=== PATIENT | male | born 1975 | race Caucasian/White ===

== ENCOUNTER 2020-03-09 09:05 | Outpatient (REF) | payer OTHER, SELFPAY ==
[2020-03-09 10:08] LABS: Hematocrit 47.3 % (42-52); Hemoglobin 15.1 g/dl (14.0-18.0); Mean Corpuscular HGB Conc 31.9 g/dl (31.0-36.0); Mean Corpuscular Hemoglobin 28.1 pg (27.0-33.0); Mean Corpuscular Volume 88.1 fL (80-98); Mean Platelet Volume 10.3 fL (9.4-12.4); Platelet Count 211 X10*3/uL (160-400); Red Blood Count 5.37 X10*6/uL (4.60-5.80); White Blood Count 5.2 X10*3/uL (4.8-10.8)
[2020-03-09 10:52] LABS: Alanine Aminotransferase 70 U/L (0-40); Alkaline Phosphatase 41 U/L (39-117); Anion Gap 11 (12-20); Aspartate Amino Transferase 61 U/L (5-37); Bilirubin Total 0.4 mg/dL (0.0-1.0); Blood Urea Nitrogen 23 mg/dL (9-16); Calcium 8.5 mg/dL (8.4-10.2); Carbon Dioxide 33 mmol/L (22-29); Chloride 98 mmol/L (96-108); Estimated Glomerular Filt Rate 58; Glucose Fasting 79 mg/dL (60-99); Potassium 4.3 mmol/l (3.3-5.1); Sodium 138 mmol/L (135-145); Total Protein 6.6 g/dL (6.5-8.0)
[2020-03-09 11:15] LABS: Prostate Specific Antigen Scr 1.07 ng/mL (<0.05-4.0)
[2020-03-10 11:42] LABS: DHEA Sulfate 559 mcg/dL (70-495)
[2020-03-11 01:32] LABS: Follicle Stimulating Hormone <0.7 mIU/mL (1.6-8.0); Lutenizing Hormone <0.2 mIU/mL (1.5-9.3)
[2020-03-12 12:17] LABS: Insulin Level Total 2.1 uIU/mL
[2020-03-15 23:41] LABS: Dihydrotestosterone 58 ng/dL (12-65)
[2020-03-17 00:51] LABS: Estradiol Free 2.77 pg/mL; Estradiol, Ultrasensitive 100 pg/mL
[2020-03-19 19:09] LABS: Testosterone, Free 382.8 pg/mL (35.0-155.0); Testosterone, Total 1302 ng/dL (250-1100)
== END 2020-03-09 09:06 | disposition home or self-care (01) ==
LOC: HO.LAB 09:05
PROVIDERS: Visit Provider Internal Medicine
DX: Z00.00 Encounter for general adult medical examination without abnormal findings (principal); E78.5 Hyperlipidemia, unspecified; E29.1 Testicular hypofunction; E03.9 Hypothyroidism, unspecified; E55.9 Vitamin D deficiency, unspecified; K76.0 Fatty (change of) liver, not elsewhere classified; I51.9 Heart disease, unspecified; D64.9 Anemia, unspecified; R53.83 Other fatigue; Z12.5 Encounter for screening for malignant neoplasm of prostate
CPT/HCPCS: 36415; 80053; 82627; 82642; 82670; 83001; 83002; 83525; 84153; 84402; 84403; 85027

== ENCOUNTER 2020-07-09 09:21 | Outpatient (REF) | payer OTHER, SELFPAY ==
[2020-07-09 10:11] LABS: Hematocrit 44.9 % (42-52); Hemoglobin 13.9 g/dl (14.0-18.0); Mean Corpuscular Hemoglobin 26.1 pg (27.0-33.0); Mean Corpuscular Volume 84.2 fL (80-98); Mean Platelet Volume 10.2 fL (9.4-12.4); Platelet Count 227 X10*3/uL (160-400); Red Blood Count 5.33 X10*6/uL (4.60-5.80); Red Cell Distribution Width 15.5 % (11.0-16.0); White Blood Count 4.8 X10*3/uL (4.8-10.8)
[2020-07-09 10:35] LABS: Alanine Aminotransferase 55 U/L (0-40); Albumin Level 4.1 g/dL (3.5-5.0); Alkaline Phosphatase 53 U/L (39-117); Anion Gap 10 (12-20); Aspartate Amino Transferase 45 U/L (5-37); Bilirubin Total 0.3 mg/dL (0.0-1.0); Blood Urea Nitrogen 21 mg/dL (9-16); Carbon Dioxide 34 mmol/L (22-29); Chloride 100 mmol/L (96-108); Estimated Glomerular Filt Rate 55; Glucose Random 91 mg/dL (60-115); Potassium 4.4 mmol/L (3.3-5.1); Sodium 140 mmol/L (135-145); Total Protein 6.8 g/dL (6.5-8.0)
[2020-07-10 11:57] LABS: DHEA Sulfate 58 mcg/dL (70-495); Insulin Level Total 3.1 uIU/mL
[2020-07-15 11:21] LABS: Dihydrotestosterone 61 ng/dL (12-65); Testosterone, Free 498.2 pg/mL (35.0-155.0); Testosterone, Total 1706 ng/dL (250-1100)
[2020-07-19 01:41] LABS: Estradiol Free 0.43 pg/mL; Estradiol, Ultrasensitive 14 pg/mL
== END 2020-07-09 09:22 | disposition home or self-care (01) ==
LOC: HO.LAB 09:21
PROVIDERS: Visit Provider Internal Medicine
DX: E29.1 Testicular hypofunction (principal); D64.9 Anemia, unspecified; K76.0 Fatty (change of) liver, not elsewhere classified; R53.83 Other fatigue
CPT/HCPCS: 36415; 80053; 82627; 82642; 82670; 82681; 83525; 84402; 84403; 85027

== ENCOUNTER 2020-08-31 08:11 | Outpatient (REF) | payer OTHER, SELFPAY ==
[2020-08-31 09:00] LABS: Hematocrit 44.1 % (42-52); Hemoglobin 13.2 g/dl (14.0-18.0); Mean Corpuscular HGB Conc 29.9 g/dl (31.0-36.0); Mean Corpuscular Hemoglobin 25.4 pg (27.0-33.0); Mean Corpuscular Volume 84.8 fL (80-98); Mean Platelet Volume 10.7 fL (9.4-12.4); Platelet Count 233 X10*3/uL (160-400); Red Cell Distribution Width 14.8 % (11.0-16.0); White Blood Count 5.9 X10*3/uL (4.8-10.8)
[2020-08-31 09:21] LABS: Alanine Aminotransferase 52 U/L (0-40); Albumin Level 4.1 g/dL (3.5-5.0); Alkaline Phosphatase 46 U/L (39-117); Anion Gap 13 (12-20); Aspartate Amino Transferase 46 U/L (5-37); Bilirubin Total 0.4 mg/dL (0.0-1.0); Blood Urea Nitrogen 20 mg/dL (9-16); Calcium 9.1 mg/dL (8.4-10.2); Carbon Dioxide 31 mmol/L (22-29); Chloride 101 mmol/L (96-108); Cholesterol 168 mg/dL; Estimated Glomerular Filt Rate 56; Glucose Random 89 mg/dL (60-115); HDL Cholesterol 45 mg/dL; LDL Cholesterol Calculated 96 mg/dl; Potassium 4.5 mmol/L (3.3-5.1); Sodium 140 mmol/L (135-145); Total Protein 6.7 g/dL (6.5-8.0); Triglycerides 137 mg/dL
[2020-08-31 09:43] LABS: Prostate Specific Antigen 1.51 ng/mL (<0.05-4.0)
[2020-09-01 05:36] LABS: Insulin Level Total 2.2 uIU/mL
[2020-09-01 06:01] LABS: Follicle Stimulating Hormone <0.7 mIU/mL (1.6-8.0); Lutenizing Hormone <0.2 mIU/mL (1.5-9.3)
[2020-09-05 21:11] LABS: Dihydrotestosterone 55 ng/dL (12-65)
[2020-09-06 19:21] LABS: Estradiol Free 2.48 pg/mL; Estradiol, Ultrasensitive 84 pg/mL
[2020-09-12 13:57] LABS: Testosterone, Free 266.8 pg/mL (35.0-155.0); Testosterone, Total 1121 ng/dL (250-1100)
== END 2020-08-31 08:12 | disposition home or self-care (01) ==
LOC: HO.LAB 08:11
PROVIDERS: Visit Provider Internal Medicine
DX: E29.1 Testicular hypofunction (principal); D64.9 Anemia, unspecified; E78.5 Hyperlipidemia, unspecified; R53.83 Other fatigue
CPT/HCPCS: 36415; 80053; 80061; 82642; 82670; 82681; 83001; 83002; 83525; 84153; 84402; 84403; 85027

== ENCOUNTER 2020-11-30 09:36 | Outpatient (REF) | payer OTHER, SELFPAY ==
[2020-11-30 10:48] LABS: Hematocrit 45.4 % (42-52); Hemoglobin 13.6 g/dl (14.0-18.0); Mean Corpuscular Hemoglobin 24.1 pg (27.0-33.0); Mean Corpuscular Volume 80.5 fL (80-98); Mean Platelet Volume 10.2 fL (9.4-12.4); Platelet Count 225 X10*3/uL (160-400); Red Blood Count 5.64 X10*6/uL (4.60-5.80); Red Cell Distribution Width 18.6 % (11.0-16.0); White Blood Count 5.7 X10*3/uL (4.8-10.8)
[2020-11-30 11:13] LABS: Alanine Aminotransferase 64 U/L (0-40); Albumin Level 4.2 g/dL (3.5-5.0); Alkaline Phosphatase 43 U/L (39-117); Anion Gap 12 (12-20); Aspartate Amino Transferase 58 U/L (5-37); Bilirubin Total 0.6 mg/dL (0.0-1.0); Blood Urea Nitrogen 19 mg/dL (9-16); Calcium 9.5 mg/dL (8.4-10.2); Carbon Dioxide 31 mmol/L (22-29); Chloride 100 mmol/L (96-108); Cholesterol 158 mg/dL; Estimated Glomerular Filt Rate 57; Glucose Random 83 mg/dL (60-115); HDL Cholesterol 44 mg/dL; Iron 45 mcg/dL (45-160); LDL Cholesterol Calculated 95 mg/dl; Percent Iron Saturation 11 % (15-50); Potassium 5.1 mmol/L (3.3-5.1); Sodium 138 mmol/L (135-145); Total Iron Binding Capacity 396 mcg/dL (228-428); Total Protein 6.7 g/dL (6.5-8.0); Triglycerides 95 mg/dL; Unsaturated Iron Binding 351 ug/dL
[2020-11-30 11:36] LABS: Ferritin 11 ng/mL (20-250); Free T4 (Free Thyroxine) 0.92 ng/dL (0.71-1.85); Prostate Specific Antigen Scr 1.71 ng/mL (<0.05-4.0); Thyroid Stimulating Hormone 2.47 uIU/mL (0.32-4.0)
[2020-12-03 18:17] LABS: Follicle Stimulating Hormone <0.7 mIU/mL (1.6-8.0); Lutenizing Hormone <0.2 mIU/mL (1.5-9.3)
[2020-12-03 21:41] LABS: DHEA Sulfate 93 mcg/dL (70-495)
[2020-12-05 14:42] LABS: Testosterone, Free 380.6 pg/mL (35.0-155.0); Testosterone, Total 1345 ng/dL (250-1100)
[2020-12-05 21:36] LABS: Dihydrotestosterone 50 ng/dL (12-65)
[2020-12-07 02:06] LABS: Estradiol Free 2.45 pg/mL; Estradiol, Ultrasensitive 88 pg/mL
== END 2020-11-30 09:37 | disposition home or self-care (01) ==
LOC: HO.LAB 09:36
PROVIDERS: Visit Provider Internal Medicine
DX: Z12.5 Encounter for screening for malignant neoplasm of prostate (principal); E29.1 Testicular hypofunction; D64.9 Anemia, unspecified; R53.83 Other fatigue; R97.20 Elevated prostate specific antigen [PSA]
CPT/HCPCS: 36415; 80053; 80061; 82627; 82642; 82670; 82681; 82728; 83001; 83002; 83540; 83735; 84153; 84402; 84403; 84439; 84443; 85027

== ENCOUNTER 2021-01-18 08:41 | Outpatient (REF) | payer OTHER, SELFPAY ==
[2021-01-18 09:09] LABS: MANUAL DIFF FLAG NO
[2021-01-18 09:45] LABS: Basophils Percent Auto 0.6 % (0-2); Eosinophils Absolute Auto 0.1 X10*3/uL (0.0-0.4); Eosinophils Percent Auto 2.3 % (0-4); Hematocrit 47.7 % (42-52); Hemoglobin 14.2 g/dl (14.0-18.0); Lymphocytes Absolute Auto 1.5 X10*3/uL (1.2-4.9); Lymphocytes Percent Auto 29.3 % (20-40); Mean Corpuscular HGB Conc 29.8 g/dl (31.0-36.0); Mean Corpuscular Hemoglobin 24.6 pg (27.0-33.0); Mean Corpuscular Volume 82.7 fL (80-98); Mean Platelet Volume 10.4 fL (9.4-12.4); Monocytes Absolute Auto 0.5 X10*3/uL (0.1-1.2); Monocytes Percent Auto 10.3 % (2-11); Neutrophils Percent Auto 57.5 % (45-73); Platelet Count 242 X10*3/uL (160-400); Red Blood Count 5.77 X10*6/uL (4.60-5.80); Red Cell Distribution Width 16.9 % (11.0-16.0); White Blood Count 5.3 X10*3/uL (4.8-10.8)
[2021-01-18 09:46] LABS: Alanine Aminotransferase 51 U/L (0-40); Albumin Level 4.3 g/dL (3.5-5.0); Alkaline Phosphatase 40 U/L (39-117); Anion Gap 12 (12-20); Aspartate Amino Transferase 47 U/L (5-37); Bilirubin Total 0.7 mg/dL (0.0-1.0); Blood Urea Nitrogen 19 mg/dL (9-16); Calcium 9.4 mg/dL (8.4-10.2); Carbon Dioxide 31 mmol/L (22-29); Chloride 100 mmol/L (96-108); Estimated Glomerular Filt Rate 51; Glucose Random 92 mg/dL (60-115); Iron 89 mcg/dL (45-160); Percent Iron Saturation 21 % (15-50); Potassium 4.7 mmol/L (3.3-5.1); Sodium 138 mmol/L (135-145); Total Iron Binding Capacity 423 mcg/dL (228-428); Total Protein 6.9 g/dL (6.5-8.0); Unsaturated Iron Binding 334 ug/dL
[2021-01-18 10:00] LABS: Ferritin 7 ng/mL (20-250)
[2021-01-19 11:36] LABS: CRP High Sensitivity 0.7 mg/L
[2021-01-19 19:52] LABS: Follicle Stimulating Hormone <0.7 mIU/mL (1.6-8.0); Lutenizing Hormone <0.2 mIU/mL (1.5-9.3)
[2021-01-24 13:51] LABS: Testosterone, Free 452.4 pg/mL (35.0-155.0); Testosterone, Total 1645 ng/dL (250-1100)
[2021-01-24 20:06] LABS: Dihydrotestosterone 63 ng/dL (12-65)
[2021-01-24 21:17] LABS: Estradiol Free 0.76 pg/mL; Estradiol, Ultrasensitive 27 pg/mL
== END 2021-01-18 08:42 | disposition home or self-care (01) ==
LOC: HO.LAB 08:41
PROVIDERS: Visit Provider Internal Medicine
DX: E29.1 Testicular hypofunction (principal); E55.9 Vitamin D deficiency, unspecified; D64.9 Anemia, unspecified; K76.0 Fatty (change of) liver, not elsewhere classified; R53.83 Other fatigue
CPT/HCPCS: 36415; 80053; 82306; 82642; 82670; 82681; 82728; 83001; 83002; 83540; 84402; 84403; 85025; 86141

== ENCOUNTER 2021-07-15 08:33 | Outpatient (REF) | payer OTHER, SELFPAY ==
[2021-07-15 09:05] LABS: MANUAL DIFF FLAG NO
[2021-07-15 09:16] LABS: Basophils Percent Auto 0.6 % (0-2); Eosinophils Absolute Auto 0.1 X10*3/uL (0.0-0.4); Eosinophils Percent Auto 2.7 % (0-4); Hematocrit 44.7 % (42.0-52.0); Hemoglobin 12.9 g/dl (14.0-18.0); Imm Gran Abs Auto 0.01 X10*3/uL (0.00-0.03); Imm Gran Pct Auto 0.2 % (0.0-0.4); Lymphocytes Absolute Auto 1.5 X10*3/uL (1.2-4.9); Lymphocytes Percent Auto 29.5 % (20-40); Mean Corpuscular HGB Conc 28.9 g/dl (31.0-36.0); Mean Corpuscular Hemoglobin 24.1 pg (27.0-33.0); Mean Corpuscular Volume 83.6 fL (80.0-98.0); Mean Platelet Volume 9.8 fL (9.4-12.4); Monocytes Absolute Auto 0.5 X10*3/uL (0.1-1.2); Monocytes Percent Auto 9.1 % (2-11); Neutrophils Percent Auto 57.9 % (45-73); Platelet Count 207 X10*3/uL (160-400); Red Blood Count 5.35 X10*6/uL (4.60-5.80); Red Cell Distribution Width 16.7 % (11.0-16.0); White Blood Count 5.2 X10*3/uL (4.8-10.8)
[2021-07-15 09:49] LABS: Alanine Aminotransferase 32 U/L (0-40); Albumin Level 3.8 g/dL (3.5-5.0); Alkaline Phosphatase 48 U/L (39-117); Anion Gap 9 (12-20); Aspartate Amino Transferase 30 U/L (5-37); Bilirubin Total 0.3 mg/dL (0.0-1.0); Blood Urea Nitrogen 22 mg/dL (9-16); C Reactive Protein 0.17 mg/dL (< or = 0.50); Calcium 9.2 mg/dL (8.4-10.2); Carbon Dioxide 32 mmol/L (22-29); Chloride 105 mmol/L (96-108); Estimated Glomerular Filt Rate 57; Glucose Random 87 mg/dL (60-115); Iron 21 mcg/dL (45-160); Potassium 4.3 mmol/L (3.3-5.1); Sodium 142 mmol/L (135-145); Total Protein 6.3 g/dL (6.5-8.0)
[2021-07-15 10:00] LABS: Percent Iron Saturation 6 % (15-50); Total Iron Binding Capacity 372 mcg/dL (228-428); Unsaturated Iron Binding 351 ug/dL
[2021-07-15 10:07] LABS: Ferritin 21 ng/mL (20-250); Vitamin D 25-OH Total 40.7 ng/mL (>30)
[2021-07-17 00:11] LABS: Follicle Stimulating Hormone <0.7 mIU/mL (1.6-8.0); Lutenizing Hormone <0.2 mIU/mL (1.5-9.3)
[2021-07-19 23:17] LABS: Dihydrotestosterone 32 ng/dL (12-65)
[2021-07-20 04:01] LABS: Estradiol Free 2.07 pg/mL; Estradiol, Ultrasensitive 71 pg/mL (< OR = 29)
[2021-07-20 19:57] LABS: Testosterone, Free 226.3 pg/mL (35.0-155.0); Testosterone, Total 747 ng/dL (250-1100)
== END 2021-07-15 08:34 | disposition home or self-care (01) ==
LOC: HO.LAB 08:33
PROVIDERS: Visit Provider Internal Medicine
DX: E78.5 Hyperlipidemia, unspecified (principal); K76.0 Fatty (change of) liver, not elsewhere classified; R53.83 Other fatigue; E55.9 Vitamin D deficiency, unspecified; D64.9 Anemia, unspecified; E29.1 Testicular hypofunction
CPT/HCPCS: 36415; 80053; 82306; 82642; 82670; 82681; 82728; 83001; 83002; 83540; 84402; 84403; 85025; 86140

== ENCOUNTER 2021-09-27 11:47 | Outpatient (REF) | payer OTHER, SELFPAY ==
[2021-09-27 13:39] LABS: Prostate Specific Antigen 1.58 ng/mL (<0.05-4.0)
== END 2021-09-27 11:48 | disposition home or self-care (01) ==
LOC: HO.LAB 11:47
PROVIDERS: Visit Provider Urology
DX: N40.1 Benign prostatic hyperplasia with lower urinary tract symptoms (principal); Z12.5 Encounter for screening for malignant neoplasm of prostate
CPT/HCPCS: 36415; 84153

== ENCOUNTER 2022-01-17 07:43 | Outpatient (REF) | payer OTHER, SELFPAY ==
[2022-01-17 08:05] LABS: MANUAL DIFF FLAG NO
[2022-01-17 08:21] LABS: Basophils Percent Auto 0.6 % (0-2); Eosinophils Absolute Auto 0.2 X10*3/uL (0.0-0.4); Eosinophils Percent Auto 3.2 % (0-4); Hemoglobin 12.7 g/dl (14.0-18.0); Imm Gran Abs Auto 0.01 X10*3/uL (0.00-0.03); Imm Gran Pct Auto 0.2 % (0.0-0.4); Lymphocytes Absolute Auto 1.6 X10*3/uL (1.2-4.9); Lymphocytes Percent Auto 30.7 % (20-40); Mean Corpuscular HGB Conc 29.5 g/dl (31.0-36.0); Mean Corpuscular Hemoglobin 23.5 pg (27.0-33.0); Mean Corpuscular Volume 79.6 fL (80.0-98.0); Mean Platelet Volume 10.4 fL (9.4-12.4); Monocytes Absolute Auto 0.4 X10*3/uL (0.1-1.2); Monocytes Percent Auto 7.8 % (2-11); Neutrophils Percent Auto 57.5 % (45-73); Platelet Count 199 X10*3/uL (160-400); Red Cell Distribution Width 17.7 % (11.0-16.0); White Blood Count 5.2 X10*3/uL (4.8-10.8)
[2022-01-17 08:46] LABS: Alanine Aminotransferase 47 U/L (0-40); Alkaline Phosphatase 48 U/L (39-117); Anion Gap 12 (12-20); Aspartate Amino Transferase 41 U/L (5-37); Bilirubin Total < 0.2 mg/dL (0.0-1.0); Blood Urea Nitrogen 23 mg/dL (9-16); Carbon Dioxide 30 mmol/L (22-29); Chloride 104 mmol/L (96-108); Estimated Glomerular Filt Rate 55; Glucose Random 96 mg/dL (60-115); Iron 18 mcg/dL (45-160); Percent Iron Saturation 4 % (15-50); Potassium 4.4 mmol/L (3.3-5.1); Sodium 142 mmol/L (135-145); Total Iron Binding Capacity 420 mcg/dL (228-428); Total Protein 6.6 g/dL (6.5-8.0); Unsaturated Iron Binding 402 ug/dL
[2022-01-17 09:10] LABS: Ferritin 6 ng/mL (20-250); Vitamin D 25-OH Total 35.9 ng/mL (>30)
[2022-01-19 18:46] LABS: Follicle Stimulating Hormone <0.7 mIU/mL (1.6-8.0); Lutenizing Hormone <0.2 mIU/mL (1.5-9.3)
[2022-01-21 02:57] LABS: CRP High Sensitivity 3.4 mg/L
[2022-01-23 14:03] LABS: Testosterone, Free 226.5 pg/mL (35.0-155.0); Testosterone, Total 998 ng/dL (250-1100)
[2022-01-24 03:06] LABS: Dihydrotestosterone 62 ng/dL (12-65)
[2022-01-26 04:37] LABS: Estradiol Free 2.64 pg/mL; Estradiol, Ultrasensitive 100 pg/mL (< OR = 29)
== END 2022-01-17 07:44 | disposition home or self-care (01) ==
LOC: HO.LAB 07:43
PROVIDERS: Visit Provider Internal Medicine
DX: E29.1 Testicular hypofunction (principal); E55.9 Vitamin D deficiency, unspecified; R53.83 Other fatigue; K76.0 Fatty (change of) liver, not elsewhere classified; D64.9 Anemia, unspecified
CPT/HCPCS: 36415; 80053; 82306; 82642; 82670; 82681; 82728; 83001; 83002; 83540; 84402; 84403; 85025; 86141

== ENCOUNTER 2022-07-07 07:43 | Outpatient (REF) | payer OTHER, SELFPAY ==
[2022-07-07 07:59] LABS: MANUAL DIFF FLAG NO
[2022-07-07 08:26] LABS: Basophils Percent Auto 0.6 % (0-2); Eosinophils Absolute Auto 0.1 X10*3/uL (0.0-0.4); Eosinophils Percent Auto 0.9 % (0-4); Hematocrit 48.2 % (42.0-52.0); Imm Gran Abs Auto 0.02 X10*3/uL (0.00-0.03); Imm Gran Pct Auto 0.3 % (0.0-0.4); Lymphocytes Absolute Auto 1.2 X10*3/uL (1.2-4.9); Lymphocytes Percent Auto 19.5 % (20-40); Mean Corpuscular HGB Conc 31.1 g/dl (31.0-36.0); Mean Corpuscular Hemoglobin 26.5 pg (27.0-33.0); Mean Corpuscular Volume 85.2 fL (80.0-98.0); Monocytes Absolute Auto 0.5 X10*3/uL (0.1-1.2); Monocytes Percent Auto 8.3 % (2-11); Neutrophils Absolute Auto 4.5 x10*3/uL (2.0-8.3); Neutrophils Percent Auto 70.4 % (45-73); Platelet Count 226 X10*3/uL (160-400); Red Blood Count 5.66 X10*6/uL (4.60-5.80); Red Cell Distribution Width 16.8 % (11.0-16.0); White Blood Count 6.4 X10*3/uL (4.8-10.8)
[2022-07-07 09:22] LABS: Prostate Specific Antigen Scr 2.01 ng/mL (<0.05-4.0)
[2022-07-14 03:10] LABS: Dihydrotestosterone 40 ng/dL (12-65)
[2022-07-15 13:53] LABS: Testosterone, Free 211.5 pg/mL (35.0-155.0); Testosterone, Total 698 ng/dL (250-1100)
[2022-07-17 20:23] LABS: Estradiol Free 1.64 pg/mL; Estradiol, Ultrasensitive 59 pg/mL (< OR = 29)
== END 2022-07-07 07:44 | disposition home or self-care (01) ==
LOC: HO.LAB 07:43
PROVIDERS: Physician Assistant; Visit Provider Internal Medicine
DX: Z12.5 Encounter for screening for malignant neoplasm of prostate (principal); E29.1 Testicular hypofunction; D64.9 Anemia, unspecified; R53.83 Other fatigue
CPT/HCPCS: 36415; 82642; 82670; 82681; 84153; 84402; 84403; 85025

== ENCOUNTER 2023-01-16 08:17 | Outpatient (REF) | payer OTHER, SELFPAY ==
[2023-01-16 08:39] LABS: MANUAL DIFF FLAG NO
[2023-01-16 09:24] LABS: Basophils Percent Auto 0.5 % (0-2); Eosinophils Absolute Auto 0.2 X10*3/uL (0.0-0.4); Eosinophils Percent Auto 2.1 % (0-4); Hematocrit 46.3 % (42.0-52.0); Hemoglobin 14.6 g/dl (14.0-18.0); Imm Gran Abs Auto 0.02 X10*3/uL (0.00-0.03); Imm Gran Pct Auto 0.3 % (0.0-0.4); Lymphocytes Absolute Auto 1.3 X10*3/uL (1.2-4.9); Lymphocytes Percent Auto 17.3 % (20-40); Mean Corpuscular HGB Conc 31.5 g/dl (31.0-36.0); Mean Corpuscular Hemoglobin 27.3 pg (27.0-33.0); Mean Corpuscular Volume 86.5 fL (80.0-98.0); Mean Platelet Volume 10.5 fL (9.4-12.4); Monocytes Absolute Auto 0.6 X10*3/uL (0.1-1.2); Monocytes Percent Auto 7.2 % (2-11); Neutrophils Absolute Auto 5.6 x10*3/uL (2.0-8.3); Neutrophils Percent Auto 72.6 % (45-73); Platelet Count 193 X10*3/uL (160-400); Red Blood Count 5.35 X10*6/uL (4.60-5.80); Red Cell Distribution Width 15.1 % (11.0-16.0); White Blood Count 7.7 X10*3/uL (4.8-10.8)
[2023-01-16 10:17] LABS: Prostate Specific Antigen Scr 2.17 ng/mL (<0.05-4.0)
[2023-01-23 03:49] LABS: Dihydrotestosterone 49 ng/dL (12-65)
[2023-01-25 01:43] LABS: Estradiol Free 1.01 pg/mL; Estradiol, Ultrasensitive 40 pg/mL (< OR = 29)
== END 2023-01-16 08:18 | disposition home or self-care (01) ==
LOC: HO.LAB 08:17
PROVIDERS: Visit Provider Internal Medicine
DX: Z12.5 Encounter for screening for malignant neoplasm of prostate (principal); E29.1 Testicular hypofunction; D64.9 Anemia, unspecified; R53.83 Other fatigue; R97.20 Elevated prostate specific antigen [PSA]
CPT/HCPCS: 36415; 82642; 82670; 82681; 84153; 84402; 84403; 85025

== ENCOUNTER 2024-04-04 13:37 | Emergency (ER) | payer OTHER, SELFPAY ==
--- NOTE | ~2024-04-04 | XR_ITS ---
EXAMINATION: XR CHEST CLINICAL INFORMATION: CP COMPARISON: Chest x-ray on 04/17/2010 TECHNIQUE: 2 views of the chest were obtained. FINDINGS: No significant abnormality is noted involving the heart, lungs, mediastinum, bony thorax or soft tissues. XR/XR chest 2V IMPRESSION: Unremarkable examination. Electronically signed by: Laila Le MD 04/04/2024 02:58 PM [facility] [place]
--- NOTE | 2024-04-04 13:39 | ECG_ITS ---
Test Reason : CHEST PAIN Blood Pressure : / mmHG Vent. Rate : 105 BPM Atrial Rate : 105 BPM P-R Int : 172 ms QRS Dur : 094 ms QT Int : 310 ms P-R-T Axes : 032 016 003 degrees QTc Int : 409 ms Sinus tachycardia Otherwise normal ECG No previous ECGs available Referred By: Generic ED Physician Electronically Signed By:Sascha Rucker
[2024-04-04 13:57] LABS: MANUAL DIFF FLAG NO
[2024-04-04 13:58] LABS: Basophils Absolute Auto 0.1 X10*3/uL (0.0-0.2); Basophils Percent Auto 0.7 % (0-2); Eosinophils Absolute Auto 0.4 X10*3/uL (0.0-0.4); Eosinophils Percent Auto 5.1 % (0-4); Hematocrit 49.8 % (42.0-52.0); Hemoglobin 16.1 g/dl (14.0-18.0); Imm Gran Abs Auto 0.02 X10*3/uL (0.00-0.03); Imm Gran Pct Auto 0.3 % (0.0-0.4); Lymphocytes Absolute Auto 2.9 X10*3/uL (1.2-4.9); Lymphocytes Percent Auto 37.4 % (20-40); Mean Corpuscular HGB Conc 32.3 g/dl (31.0-36.0); Mean Corpuscular Hemoglobin 27.9 pg (27.0-33.0); Mean Corpuscular Volume 86.3 fL (80.0-98.0); Mean Platelet Volume 9.7 fL (9.4-12.4); Monocytes Absolute Auto 0.6 X10*3/uL (0.1-1.2); Monocytes Percent Auto 7.9 % (2-11); Neutrophils Absolute Auto 3.7 x10*3/uL (2.0-8.3); Neutrophils Percent Auto 48.6 % (45-73); Platelet Count 216 X10*3/uL (160-400); Red Blood Count 5.77 X10*6/uL (4.60-5.80); White Blood Count 7.7 X10*3/uL (4.8-10.8)
[2024-04-04 14:13] LABS: Anion Gap 14 (12-20); Blood Urea Nitrogen 25 mg/dL (9-16); Calcium 9.4 mg/dL (8.4-10.2); Carbon Dioxide 30 mmol/L (22-29); Chloride 103 mmol/L (96-108); Estimated Glomerular Filt Rate 54; Glucose Random 149 mg/dL (60-115); Potassium 3.7 mmol/L (3.3-5.1); Sodium 143 mmol/L (135-145)
[2024-04-04 14:14] VITALS: BP 121/71; PULSE 94; RESP 18; TEMP 36.1; O2SAT 99; BMI 26.3
[2024-04-04 14:22] LABS: Troponin-I High Sensitivity 4.5 ng/L (<3.5-35.0)
[2024-04-04 15:00] LABS: Free T4 (Free Thyroxine) 1.08 ng/dL (0.71-1.85); Thyroid Stimulating Hormone 3.33 uIU/mL (0.32-4.0)
--- NOTE | 2024-04-04 16:43 | ED.GENADULT ---
HPI - General Adult General Chief complaint: Arrhythmia/Palpitations Stated complaint: chest pain Source: patient Mode of arrival: ambulatory Limitations: no limitations History of Present Illness ED Provider: Gabriel Barros PA-C HPI narrative: patient left before completion of treatment by ED provider. Related Data Allergies Allergy/AdvReac Type Severity Reaction Status Date / Time No Known Allergies Allergy Verified 04/04/24 14:15 PMFSH Social History Social History Advance Directives: No Advance Directives Information Provided: No Physical Exam ED Vital Signs: Vital Signs - 24 hr 04/04/24 14:14 Temperature 97 F Pulse Rate 94 Respiratory Rate 18 Blood Pressure 121/71 Pulse Oximetry 99 Oxygen Delivery Method Room Air BMI result Body Mass Index 26.3 Course Course Course Narrative: RME: 13 male presents to ED for palpitations, chills, metallic taste and sensation that he was about to pass out. Patient states this lasted for only couple of minutes and resolved on its own. Patient denies ever losing consciousness. Patient denies any headache, slurred speech, facial droop, paralysis of extremities, nausea, or vomiting. Patient denies any recent long travel or recent surgery. Neuro exam intact. Lungs are clear. Vital signs stable. EKG labs ordered Medical Decision Making Lab Data 04/04/24 13:52 04/04/24 13:52 Labs: Lab Results 04/04/24 Range/Units 13:52 WBC 7.7 (4.8-10.8) X10*3/uL RBC 5.77 (4.60-5.80) X10*6/uL Hgb 16.1 (14.0-18.0) g/dl Hct 49.8 (42.0-52.0) % MCV 86.3 (80.0-98.0) fL MCH 27.9 (27.0-33.0) pg MCHC 32.3 (31.0-36.0) g/dl RDW 15.0 (11.0-16.0) % Plt Count 216 (160-400) X10*3/uL MPV 9.7 (9.4-12.4) fL Immature Gran % (Auto) 0.3 (0.0-0.4) % Neut % (Auto) 48.6 (45-73) % Lymph % (Auto) 37.4 (20-40) % Foster % (Auto) 7.9 (2-11) % Eos % (Auto) 5.1 H (0-4) % Baso % (Auto) 0.7 (0-2) % Lymph # (Auto) 2.9 (1.2-4.9) X10*3/uL Foster # (Auto) 0.6 (0.1-1.2) X10*3/uL Eos # (Auto) 0.4 (0.0-0.4) X10*3/uL Baso # (Auto) 0.1 (0.0-0.2) X10*3/uL Abs Immat Gran (auto) 0.02 (0.00-0.03) X10*3/uL Absolute Neuts (auto) 3.7 (2.0-8.3) x10*3/uL Absolute Nucleated RBC 0.000 (0.0-0.012) X10*3/uL Nucleated RBC % (auto) 0.0 (0.0-0.2) /100WBC Sodium 143 (135-145) mmol/L Potassium 3.7 (3.3-5.1) mmol/L Chloride 103 (96-108) mmol/L Carbon Dioxide 30 H (22-29) mmol/L Anion Gap 14 (12-20) BUN 25 H (9-16) mg/dL Creatinine 1.40 (0.5-1.4) mg/dL Estim Creat Clear Calc TNP Estimated GFR 54 Random Glucose 149 H (60-115) mg/dL Calcium 9.4 (8.4-10.2) mg/dL Troponin I High Sens 4.5 (<3.5-35.0) ng/L TSH 3.33 (0.32-4.0) uIU/mL Free T4 1.08 (0.71-1.85) ng/dL Discharge Plan Discharge Clinical Impression: Palpitations Patient Disposition: Left W/O Completing Treatment Discharge Date/Time: 04/04/24 20:27
== END 2024-04-04 20:27 | disposition left against medical advice (07) ==
PROVIDERS: Physician Assistant; Emergency Provider Internal Medicine
DX: R00.2 Palpitations (principal); R07.9 Chest pain, unspecified
CPT/HCPCS: 36415; 71046; 80048; 84439; 84443; 84484; 85025; 93005; 99283

== ENCOUNTER → 2024-04-04 13:39 | Outpatient (BNV) | payer OTHER, SELFPAY | PROVIDERS: Emergency Provider Internal Medicine; Visit Provider Internal Medicine Cardiovascular Disease | DX: R07.9 Chest pain, unspecified (principal); R00.0 Tachycardia, unspecified | CPT/HCPCS: 93010 ==